=== PATIENT | male | born 1950 | race Caucasian/White ===

== ENCOUNTER → 2016-12-02 | Outpatient (CLI) | payer BC ==
[~2016-12-02] MED LIST: ALLERGY10 M1 PO; ASPIRIN LO-DOSE81 MG PO; DIOVAN320 MG PO; GLUCOSAMINE CH1 EAC3 PO; K-TAB ER20 MEQ PO; L-ARGININE500 M1 PO; L-LYSINE500 M1 PO; MAGNESIUM27 MG PO; NORCO 5-325 TA1 EACH PO; THERA-VITE W/ B1 TAB PO
== END | disposition disaster alternative care site (69) ==
LOC: GRAD 09:20
DX: N20.0 Calculus of kidney (principal); Z96.0 Presence of urogenital implants